=== PATIENT | female | born 1980 | race Caucasian/White ===

== ENCOUNTER 2021-10-04 08:40 | Inpatient (IN) | payer OTHER ==
[2021-10-04] MEDS ORDERED: BUTORPHANOL TARTRATE 1 MG/ML VIAL IVPB ONE (09:27)
[2021-10-04 10:19] VITALS: BMI 31.2
[2021-10-04] MEDS: ELECTROLYTE-148 SOLN 1,000 ML IV SCH (10:30)
[2021-10-04] MEDS ORDERED: OXYTOCIN 30 UNITS in 0.9% NS 30 UNIT/500 ML INFUS.BAG IVPB SCH (11:45)
[2021-10-04] MEDS ORDERED: BUTORPHANOL TARTRATE 2 MG/ML VIAL ONE (13:32)
[2021-10-04] MEDS ORDERED: PROMETHAZINE HCL 25 MG/1 ML VIAL ONE (13:32)
[2021-10-04] MEDS ORDERED: PROMETHAZINE HCL 25 MG/1 ML VIAL IVPB ONE (13:45)
[2021-10-04 14:27] LABS: BASO % 0.5 % (0-2.0); EOS % 0.5 % (0-4.5); HEMATOCRIT 37.8 % (32.4-45.2); HEMOGLOBIN 12.7 GM/dL (10.7-15.3); LYMPH % 13.1 % (8-40); MCHC 33.6 g/dl (32.0-36.0); MEAN CELL VOLUME 89.3 fl (80-96); MEAN PLT VOLUME 10.7 fl (7.5-11.1); MONO % 4.2 % (3.8-10.2); NEUT % 81.7 % (42.8-82.8); PLATELET COUNT 313 10^3/uL (134-434); RBC 4.24 M/mm3 (3.60-5.2); WHITE BLOOD COUNT 11.7 K/mm3 (4.0-10.0)
[2021-10-04 14:37] LABS: INR 0.94 (0.83-1.09); PROTHROMBIN TIME (PATIENT) 10.8 SEC (9.7-13.0)
[2021-10-04 14:40] LABS: ACTIVATED PTT 28.2 SECONDS (25.2-36.5)
[2021-10-04 14:45] LABS: BLOOD UREA NITROGEN 10.1 mg/dL (7-18)
[2021-10-04 14:48] LABS: CREATININE 0.5 mg/dL (0.55-1.3)
[2021-10-04] MEDS ORDERED: FENTANYL/BUPIVACAINE/NS/PF - PCEA - 50 ML DISP.SYRIN EP ONE ×3 (15:54→23:07)
[2021-10-04] MEDS: FENTANYL/BUPIVACAINE/NS/PF - PCEA - 50 ML DISP.SYRIN EP SCH ×3 (16:15→23:10)
[2021-10-04] MEDS ORDERED: NALOXONE HCL 0.4 MG/ML VIAL IVPUSH PRN (16:26)
[2021-10-04] MEDS ORDERED: LIDOCAINE HCL/EPINEPHRINE/PF 20 ML VIAL ONE ×2 (18:40→23:09)
[2021-10-05] MEDS: FENTANYL/BUPIVACAINE/NS/PF - PCEA - 50 ML DISP.SYRIN EP SCH (01:25)
[2021-10-05] MEDS ORDERED: FENTANYL/BUPIVACAINE/NS/PF - PCEA - 50 ML DISP.SYRIN EP ONE (01:26)
[2021-10-05] MEDS ORDERED: OXYTOCIN 20 UNITS in 0.9% NS 20 UNIT/1,000 ML INFUS.BAG IV ONE (02:20)
[2021-10-05] MEDS ORDERED: ceFAZolin SODIUM 1 GM VIAL ONE (02:20)
[2021-10-05] MEDS ORDERED: LIDOCAINE HCL/EPINEPHRINE/PF 20 ML VIAL ONE (02:20)
[2021-10-05] MEDS ORDERED: LIDOCAINE HCL 1% PRESERVATIVE FREE - 30ML VIAL ONE (02:42)
[2021-10-05] MEDS ORDERED: OXYTOCIN 10 UNITS/ML VIAL ONE (02:46)
[2021-10-05] MEDS ORDERED: KETAMINE HCL 500 MG/10 ML VIAL ONE (02:47)
[2021-10-05] MEDS ORDERED: PHENYLEPHRINE HCL 10 MG/1 ML SINGLE DOSE VIAL ONE (02:54)
[2021-10-05] MEDS ORDERED: morphine SULFATE/PF 1 MG/2 ML (2cc Syringe - QUVA) ONE (03:28)
[2021-10-05] MEDS ORDERED: ONDANSETRON 4 MG/2 ML VIAL IVPUSH PRN (03:58)
[2021-10-05] MEDS ORDERED: ACETAMINOPHEN INJECTION 100 ML IVPB ONE ×2 (03:58→17:28)
[2021-10-05] MEDS ORDERED: IBUPROFEN 600 MG TABLET (FP) PO PRN (03:58)
[2021-10-05] MEDS ORDERED: ACETAMINOPHEN 325 MG TABLET (FP) PO PRN ×2 (03:58→04:38)
[2021-10-05] MEDS ORDERED: ACETAMINOPHEN 1000 MG/100 ML BAG IVPB ONE ×2 (04:00→17:30)
[2021-10-05 04:28] LABS: CORD HCO3 22.6 mmHg (20-29); CORD PCO2 56.5 mmHg (30-78); CORD pH 7.219 (7.14-7.44)
[2021-10-05 04:32] LABS: CORD HCO3 20.2 mmHg (20-29); CORD PCO2 53.3 mmHg (30-78); CORD pH 7.196 (7.14-7.44)
[2021-10-05] MEDS ORDERED: METHYLERGONOVINE MALEATE 0.2 MG/1 ML AMP IM PRN (04:38)
[2021-10-05] MEDS: OXYTOCIN 20 UNITS in 0.9% NS 20 UNIT/1,000 ML INFUS.BAG IV SCH ×3 (06:45→15:46)
[2021-10-05 06:49] LABS: HEMATOCRIT 33.2 % (32.4-45.2); HEMOGLOBIN 11.5 GM/dL (10.7-15.3); MCH 30.6 pg (25.7-33.7); MCHC 34.8 g/dl (32.0-36.0); MEAN CELL VOLUME 88.1 fl (80-96); MEAN PLT VOLUME 9.9 fl (7.5-11.1); PLATELET COUNT 281 10^3/uL (134-434); RBC 3.77 M/mm3 (3.60-5.2); RDW 13.9 % (11.6-15.6); WHITE BLOOD COUNT 18.6 K/mm3 (4.0-10.0)
[2021-10-05 09:22] LABS: ANISOCYTOSIS 2+; MACROCYTOSIS 0
[2021-10-05] MEDS ORDERED: CEFAZOLIN 1 GM/D5W 1 GM/50 ML BAG IVPB SCH (10:00)
[2021-10-05] MEDS: CEFAZOLIN 1 GM in DEXTROSE 5%-WATER - 50 ML IVPB SCH ×2 (10:01→18:36)
[2021-10-05] MEDS: ENOXAPARIN NA (PORCINE) 40 MG/0.4 ML DISP.SYRIN SQ SCH (10:02)
[2021-10-05] MEDS: SIMETHICONE 80 MG TAB.CHEW (FP) PO PRN ×2 (16:27→21:22)
[2021-10-05] MEDS ORDERED: oxyCODONE HCL 5 MG TABLET PO PRN ×2 (16:38)
[2021-10-05] MEDS ORDERED: BISACODYL 10 MG SUPP.RECT PR ONE (18:06)
[2021-10-05] MEDS: IBUPROFEN 600 MG TABLET (FP) PO PRN (21:23)
[2021-10-06] MEDS: CEFAZOLIN 1 GM in DEXTROSE 5%-WATER - 50 ML IVPB SCH (01:04)
[2021-10-06] MEDS: SIMETHICONE 80 MG TAB.CHEW (FP) PO PRN ×3 (01:11→23:14)
[2021-10-06] MEDS: IBUPROFEN 600 MG TABLET (FP) PO PRN ×3 (01:12→23:14)
[2021-10-06] MEDS ORDERED: BISACODYL 10 MG SUPP.RECT RC PRN (04:38)
[2021-10-06 08:37] LABS: HEMATOCRIT 32.8 % (32.4-45.2); HEMOGLOBIN 11.2 GM/dL (10.7-15.3); MCH 30.4 pg (25.7-33.7); MEAN CELL VOLUME 89.4 fl (80-96); MEAN PLT VOLUME 9.3 fl (7.5-11.1); PLATELET COUNT 268 10^3/uL (134-434); RBC 3.67 M/mm3 (3.60-5.2); RDW 14.3 % (11.6-15.6)
[2021-10-06] MEDS: ENOXAPARIN NA (PORCINE) 40 MG/0.4 ML DISP.SYRIN SQ SCH (09:57)
[2021-10-06 10:13] LABS: ANISOCYTOSIS 0; MACROCYTOSIS 0
[2021-10-07] MEDS: IBUPROFEN 600 MG TABLET (FP) PO PRN ×2 (10:13→21:21)
[2021-10-07] MEDS: ENOXAPARIN NA (PORCINE) 40 MG/0.4 ML DISP.SYRIN SQ SCH (10:14)
[2021-10-07] MEDS: SIMETHICONE 80 MG TAB.CHEW (FP) PO PRN ×2 (10:14→21:20)
[2021-10-07] MEDS: OXYTOCIN 20 UNITS in 0.9% NS 20 UNIT/1,000 ML INFUS.BAG IV SCH (20:28)
[2021-10-07] MEDS: ELECTROLYTE-148 SOLN 1,000 ML IV SCH (20:28)
[2021-10-08 08:02] LABS: BASO % 0.4 % (0-2.0); HEMATOCRIT 32.8 % (32.4-45.2); HEMOGLOBIN 11.3 GM/dL (10.7-15.3); MCH 30.7 pg (25.7-33.7); MCHC 34.5 g/dl (32.0-36.0); MEAN CELL VOLUME 88.9 fl (80-96); MEAN PLT VOLUME 9.2 fl (7.5-11.1); MONO % 3.2 % (3.8-10.2); NEUT % 78.4 % (42.8-82.8); PLATELET COUNT 353 10^3/uL (134-434); RBC 3.69 M/mm3 (3.60-5.2); RDW 14.2 % (11.6-15.6); WHITE BLOOD COUNT 10.1 K/mm3 (4.0-10.0)
[2021-10-08] MEDS: SIMETHICONE 80 MG TAB.CHEW (FP) PO PRN (09:11)
[2021-10-08] MEDS: IBUPROFEN 600 MG TABLET (FP) PO PRN (09:11)
[2021-10-08] MEDS: ENOXAPARIN NA (PORCINE) 40 MG/0.4 ML DISP.SYRIN SQ SCH (09:11)
[2021-10-08 12:35] VITALS: BP 120/93; PULSE 87; RESP 17; TEMP 98.3
== END 2021-10-08 13:15 | disposition home or self-care (01) | DRG 788 ==
LOC: JLDR 08:40 → J3W 10-05 06:14
PROVIDERS: ADMIT Obstetrics & Gynecology; ATTEND Obstetrics & Gynecology
PROC: 10D00Z1 Extraction of Products of Conception, Low, Open Approach (ICD-10-PCS; principal; 2021-10-05)
DX: O76 Abnormality in fetal heart rate and rhythm complicating labor and delivery (principal); O32.4XX0 Maternal care for high head at term, not applicable or unspecified; O77.0 Labor and delivery complicated by meconium in amniotic fluid; Z3A.39 39 weeks gestation of pregnancy; Z37.0 Single live birth
CPT/HCPCS: 36415; 36600; 80048; 82803; 85025; 85610; 85730; 86780; 86850; 86900; 86901; 88307-TC; C9803-CS; U0003; U0005